=== PATIENT | female | born 1945 | race Caucasian/White ===

== ENCOUNTER 2021-01-06 10:21 | Day surgery (SDC) | payer BC ==
[~2021-01-06] VITALS: Ht 162.6 cm; Wt 71.8 kg
[2021-01-06] VITALS (9 sets, daily range): BP systolic 111–144; BP diastolic 61–78
[2021-01-06] MEDS ORDERED: normal saline 1,000 ML IV SCH (10:45)
[2021-01-06] MEDS ORDERED: diphenhydrAMINE 25mg capsule PO PRN (10:45)
[2021-01-06] MEDS ORDERED: LORazepam 0.5 MG tablet PO PRN (10:45)
[2021-01-06] MEDS ORDERED: LIDOcaine/PRILOcaine 5gm cream TP ONE (10:50)
[2021-01-06] MEDS ORDERED: FURO20TA4 PO (10:58)
[2021-01-06] MEDS ORDERED: CHOL50004 PO (10:58)
[2021-01-06] MEDS ORDERED: BIOT5000 PO (10:58)
[2021-01-06] MEDS ORDERED: SIMV-45 PO (10:58)
[2021-01-06] MEDS ORDERED: WARF-55 PO (10:58)
[2021-01-06] MEDS ORDERED: METO50TA16 PO (10:58)
[2021-01-06] MEDS ORDERED: FEBU40TA3 PO (10:58)
[2021-01-06] MEDS ORDERED: LOSA50TA64 PO (10:58)
[2021-01-06] MEDS ORDERED: LAMO100T PO (10:58)
[2021-01-06] MEDS ORDERED: LIDOcaine 1% (10mg/ml)w/preservative injection 20ml MDV ONE (11:34)
[2021-01-06] MEDS ORDERED: fentaNYL/PF 50MCG/1 ML 2ML syringe ONE (11:34)
[2021-01-06] MEDS ORDERED: iohexol 350MG/ML 100ml bottle IV ONE (11:34)
[2021-01-06] MEDS ORDERED: midazolam 1 mg/ML 2ml injection ONE (11:34)
[2021-01-06] MEDS ORDERED: heparin 1,000unit/ml 10ml vial 10 ML ONE (11:34)
[2021-01-06] MEDS ORDERED: verapamil 2.5 mg/ml inj IV ONE (11:48)
[2021-01-06] MEDS ORDERED: nitroGLYCERIN-Tridil 50MG/D5W 250 ML IV ONE (11:48)
[2021-01-06] MEDS ORDERED: OXAZEpam 15mg capsule PO PRN (13:50)
[2021-01-06] MEDS ORDERED: proCHLORperazine 10 MG/2 ml inj IV PRN (13:50)
[2021-01-06] MEDS ORDERED: ondansetron/PF 4mg/2ml inj IV PRN (13:50)
[2021-01-06] MEDS ORDERED: HYDROcodone/acetaminophen 10/325mg tab PO PRN (13:50)
[2021-01-06] MEDS ORDERED: HYDROcodone/acetaminophen 5mg/325mg tablet PO PRN (13:50)
== END 2021-01-06 17:00 | disposition home or self-care (01) ==
LOC: SSTAY O 10:21
PROVIDERS: ATTEND Internal Medicine Interventional Cardiology
DX: I05.0 Rheumatic mitral stenosis (principal); I25.10 Atherosclerotic heart disease of native coronary artery without angina pectoris; I10 Essential (primary) hypertension; E11.9 Type 2 diabetes mellitus without complications; I48.91 Unspecified atrial fibrillation; G40.909 Epilepsy, unspecified, not intractable, without status epilepticus; E03.9 Hypothyroidism, unspecified; E78.5 Hyperlipidemia, unspecified; Z79.899 Other long term (current) drug therapy; Z79.01 Long term (current) use of anticoagulants; Z87.891 Personal history of nicotine dependence
CPT/HCPCS: 93005; 93458; 99152; C1769; C1894; J1644; J2001; J2250; J3010; J7030; Q0163; Q9967; A4620; A6258; J3490

== ENCOUNTER 2021-02-26 19:51 | Emergency (ER) | payer BC ==
[~2021-02-26] VITALS: Ht 162.6 cm; Wt 71.8 kg
[~2021-02-26 19:51] MED LIST: BIOT5000 PO; CHOL50004 PO; FEBU40TA3 PO; FLO44IN IH; FURO20TA4 PO; LAMO100T PO; SIMV-45 PO; WARF-55 PO; WARF-65 PO
[2021-02-26 20:14] LABS: HEMOGLOBIN 9.9 g/dl (12.0-16.0); RED CELL DISTRIBUTION WIDTH 19.2 % (11.5-14.5)
[2021-02-26 20:15] LABS: BASOPHILS # (AUTO) 0.1 X10'3 (0-0.2); EOSINOPHILS # (AUTO) 0.3 X10'3 (0-0.9); EOSINOPHILS % (AUTO) 2.7 % (0-6); LYMPHOCYTES # (AUTO) 0.8 X10'3 (1.1-4.8); LYMPHOCYTES % (AUTO) 7.9 % (21-51); MEAN CORPUSCULAR HEMOGLOBIN 25.2 PG (27.0-31.0); MEAN CORPUSCULAR HGB CONC 31.8 g/dL (33.0-36.5); MEAN CORPUSCULAR VOLUME 79.2 FL (78-98); MONOCYTES # (AUTO) 0.9 X10'3 (0-0.9); MONOCYTES % (AUTO) 9.5 % (2-12); NEUTROPHILS # (AUTO) 7.8 X10'3 (1.8-7.7); NEUTROPHILS % (AUTO) 78.9 % (42-75); PLATELET COUNT 232 X10'3 (140-440); RED BLOOD COUNT 3.92 X10'6 (4.20-5.60); WHITE BLOOD COUNT 9.9 X10'3 (4.5-11.0)
[2021-02-26 20:23] LABS: ALANINE AMINOTRANSFERASE 58 U/L (12-78); ALBUMIN 2.4 G/DL (3.4-5.0); ALBUMIN/GLOBULIN RATIO 0.5 (1.1-1.5); ALKALINE PHOSPHATASE 209 IU/L (46-116); ANION GAP 5 (8-16); ASPARTATE AMINO TRANSFERASE 45 U/L (10-37); BILIRUBIN,TOTAL 0.6 MG/DL (0.1-1.0); BLOOD UREA NITROGEN 32 MG/DL (7-18); BUN/CREATININE RATIO 21.6 (6.6-38.0); CALCIUM 8.5 MG/DL (8.5-10.1); CHLORIDE 95 MMOL/L (99-107); CREATININE 1.48 MG/DL (0.40-0.90); GLUCOSE 128 MG/DL (70-104); POTASSIUM 3.9 MMOL/L (3.5-5.1); SODIUM 133 MMOL/L (135-145); TOTAL CARBON DIOXIDE 32.9 MMOL/L (24-32); TOTAL PROTEIN 6.9 G/DL (6.4-8.2); eGFR 34 ML/MIN
[2021-02-26 21:09] LABS: ANISOCYTOSIS 2+; MICROCYTOSIS 1+; PLATELET ESTIMATE NORMAL; POLYCHROMASIA FEW
[2021-02-26 22:56] VITALS: BP 121/73
[2021-03-03] MEDS ORDERED: BISA10SU60 RC (04:28)
[2021-03-03] MEDS ORDERED: FURO-150 PO (04:57)
[2021-03-03] MEDS ORDERED: AMIO200T61 PO (04:57)
[2021-03-03] MEDS ORDERED: SENN1TAB82 PO (04:57)
[2021-03-03] MEDS ORDERED: ASPI-1265 PO (04:57)
[2021-03-03] MEDS ORDERED: ATOR10TA87 PO (04:57)
[2021-03-03] MEDS ORDERED: PPD ID (04:57)
[2021-03-03] MEDS ORDERED: LOP12.5T PO (04:57)
== END 2021-02-26 22:57 | disposition home or self-care (01) ==
LOC: ER 19:52
DX: K22.4 Dyskinesia of esophagus (principal); R06.02 Shortness of breath; I48.91 Unspecified atrial fibrillation; E78.00 Pure hypercholesterolemia, unspecified; I13.10 Hypertensive heart and chronic kidney disease without heart failure, with stage 1 through stage 4 chronic kidney disease, or unspecified chronic kidney disease; I50.9 Heart failure, unspecified; N18.9 Chronic kidney disease, unspecified; Z79.899 Other long term (current) drug therapy
CPT/HCPCS: 36415; 71045; 80053; 85008; 85025; 93005; 99285

== ENCOUNTER 2022-01-12 11:42 | Day surgery (SDC) | payer BC ==
[2022-01-12] VITALS (14 sets, daily range): BP systolic 117–172; BP diastolic 55–81
[~2022-01-12] VITALS: Ht 162.6 cm; Wt 71.8 kg
[~2022-01-12 11:42] MED LIST changes: +AMIO200T61 PO; +ASPI-1265 PO; +FURO-150 PO; -FURO20TA4 PO; +LOP12.5T PO; +SENN1TAB82 PO
[2022-01-12] MEDS ORDERED: normal saline 1000ml 1,000 ML IV SCH (12:05)
[2022-01-12] MEDS ORDERED: fentaNYL/PF 50MCG/1 ML 2ML syringe IV ONE (12:05)
[2022-01-12] MEDS ORDERED: MIDAZolam 1mg/ml 10ml vial IV ONE (12:05)
[2022-01-12 13:05] LABS: BASOPHILS # (AUTO) 0.1 X10'3 (0-0.2); BASOPHILS % (AUTO) 0.8 % (0-1); EOSINOPHILS # (AUTO) 0.3 X10'3 (0-0.9); EOSINOPHILS % (AUTO) 2.6 % (0-6); HEMATOCRIT 39.1 % (35.0-45.0); HEMOGLOBIN 12.9 g/dl (12.0-16.0); LYMPHOCYTES # (AUTO) 1.9 X10'3 (1.1-4.8); LYMPHOCYTES % (AUTO) 16.8 % (21-51); MEAN CORPUSCULAR HEMOGLOBIN 27.9 PG (27.0-31.0); MEAN CORPUSCULAR HGB CONC 32.8 g/dL (33.0-36.5); MEAN PLATELET VOLUME 8.7 FL (7.4-10.4); MONOCYTES # (AUTO) 1.2 X10'3 (0-0.9); MONOCYTES % (AUTO) 10.6 % (2-12); NEUTROPHILS # (AUTO) 7.7 X10'3 (1.8-7.7); NEUTROPHILS % (AUTO) 69.2 % (42-75); PLATELET COUNT 252 X10'3 (140-440); RED CELL DISTRIBUTION WIDTH 15.6 % (11.5-14.5); WHITE BLOOD COUNT 11.1 X10'3 (4.5-11.0)
[2022-01-12 13:12] LABS: ALBUMIN 3.1 G/DL (3.4-5.0); ANION GAP 10 (8-16); BLOOD UREA NITROGEN 33 MG/DL (7-18); BUN/CREATININE RATIO 24.4 (6.6-38.0); CALCIUM 8.9 MG/DL (8.5-10.1); CHLORIDE 106 MMOL/L (99-107); CREATININE 1.35 MG/DL (0.40-0.90); POTASSIUM 4.1 MMOL/L (3.5-5.1); SODIUM 140 MMOL/L (135-145); TOTAL CARBON DIOXIDE 24.3 MMOL/L (24-32); eGFR 38 ML/MIN
[2022-01-12 13:16] LABS: GLUCOSE 96 MG/DL (70-104)
[2022-01-12] MEDS ORDERED: ROSU40TA PO (14:10)
[2022-01-12] MEDS ORDERED: METO50TA17 PO (14:13)
== END 2022-01-12 15:30 | disposition home or self-care (01) ==
LOC: SSTAY O 11:42
PROVIDERS: ATTEND Internal Medicine Interventional Cardiology
DX: I48.91 Unspecified atrial fibrillation (principal); I10 Essential (primary) hypertension; E11.51 Type 2 diabetes mellitus with diabetic peripheral angiopathy without gangrene; I70.203 Unspecified atherosclerosis of native arteries of extremities, bilateral legs; E78.5 Hyperlipidemia, unspecified; E03.9 Hypothyroidism, unspecified; I08.0 Rheumatic disorders of both mitral and aortic valves; G40.909 Epilepsy, unspecified, not intractable, without status epilepticus; Z79.899 Other long term (current) drug therapy; Z79.01 Long term (current) use of anticoagulants; Z87.891 Personal history of nicotine dependence
CPT/HCPCS: 36415; 80048; 85025; 85610; 92960; 93005; 94760; 94799; J2250; J3010; J7030